=== PATIENT | male | born 1970 | race Caucasian/White ===

== ENCOUNTER 2025-09-29 13:40 | Outpatient (AMB) | payer OTHER, SELFPAY ==
--- NOTE | 2025-09-29 13:49 | MHC.OFFVIS ---
Intake Visit Reasons: 1yr Allergies No Known Allergies (NO KNOWN ALLERGIES) Allergy (Intermediate, Unverified 08/03/20 19:52) UNKNOWN HPI Comments Details: 55 yo man with anxiety and migraine headaches. He used to have migraine symptoms (tingling, numbness, brain fogginess, and headaches, then he started to have a lot of headaches. Pain on one or the other side, front or top or the back of head. Headache lasted for couple of weeks, after which he started having numbness and tingling in different areas of his body.) He is presenting with sleep disturbances and migraine management. He has been experiencing migraines infrequently, about once or twice in the last six months, with identifiable pre-migraine symptoms that are sometimes visual. This preemptive recognition enables him to take his medication early, which proves effective in managing his migraine symptoms. No maintenance therapy for migraines is undertaken at this time. The patient also reports difficulty in regulating sleep, facing a pattern where he awakens after three to four hours of rest. He attributes this partly to aging, which affects the autonomic nervous system's capacity for deep sleep. 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 He recognizes the importance of both physical and mental activities in mitigating these issues and plans to improve his current exercise routine. Review of Systems Narrative - Neurological: Reports infrequent migraines, with precursory visual symptoms. - Sleep: Reports difficulty in regulating sleep and waking after 3-4 hours. 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 - Psychiatric: Denies additional mental health concerns. Physical Exam Neuro Other: Mental Status: Alert and oriented to person, place, and time. Normal attention. Normal spontaneous speech, fluency, and comprehension. No obvious issues with mood and memory. Affect is appropriate. Cranial Nerves: CN II: Visual higginbotham full to confrontation, visual acuity intact. CN III, IV, : Pupils equal, round, reactive to light and accommodation. Extraocular movements are normal. CN V: Facial sensation is normal. CN VII: Facial movements symmetrical. CN VIII: Hearing intact to bedside conversation is normal. CN IX, X: Palate elevates symmetrically. CN XI: Shoulder shrug and head turn symmetrical. CN XII: Tongue midline without atrophy or fasciculations. Coordination: Gbyhee-zh-olhg and ajhj-ud-uxzf testing normal. No dysmetria. Gait and Station: No obvious gait abnormality. No ataxia or instability. Extrapyramidal: Full facial expressions and blinking. No rigidity. Movements are appropriate with no tremor or abnormality. Speech: Normal; no dysarthria or tremor. Assessment & Plan Assessment & Plan (1) Migraine: Comment: MRI brain WO at [facility] in Jul 2024: Empty sella CT brain WO [place] [facility] [place]: mild cortical bifrontal atrophy MRI brain WO at [facility] in May 2020: ok with a right ext cap area cyst Chest XR at [facility] in May 2020; WNL. Code(s): G43.909 - Migraine, unspecified, not intractable, without status migrainosus Category: Medical Qualifiers: Migraine type: without aura Status migrainosus presence: without status migrainosus Intractability: not intractable Qualified Code(s): G43.009 - Migraine without aura, not intractable, without status migrainosus (2) Migraine equivalent syndrome: Code(s): G43.109 - Migraine with aura, not intractable, without status migrainosus Category: Medical (3) Anxiety: Code(s): F41.9 - Anxiety disorder, unspecified Category: Medical (4) Insomnia: Code(s): G47.00 - Insomnia, unspecified Category: Medical Qualifiers: Insomnia type: psychophysiologic Qualified Code(s): F51.04 - Psychophysiologic insomnia Plan Impression: 1. Migraine 2. Migraine equivalents syndrome causing multiple symptoms as described in HPI 3. Psychophysiologic insomnia Recommendations: 1. Sumatriptan 50 mg 1 a day as needed 2. Reassurance and education about sleep and sleep hygiene. The patient and I discussed the management of his migraine and sleep disturbances. For the migraines, since they occur infrequently and are managed successfully with prescribed medication, no adjustment to his current treatment was deemed necessary. For sleep disturbances, we conversed about the significance of sleep hygiene and regular exercise. I highlighted that as one ages, paying attention to such factors becomes increasingly important due to changes in the autonomic nervous system. I encouraged the patient to make lifestyle changes over the next few months, and should these not result in improvement, we might consider additional therapeutic options. I recommended reading materials on insomnia to help inform his self-management efforts. We agreed on these plans and addressed any questions he had during our conversation. Coding Level of Care Code Est Pt Level 4 (38411) Global (44120) Diagnoses Migraine without aura and without status migrainosus, not intractable G43.009 Migraine type: without aura Status migrainosus presence: without status migrainosus Intractability: not intractable Migraine equivalent syndrome G43.109 Anxiety F41.9 Psychophysiological insomnia F51.04 Insomnia type: psychophysiologic
--- OUTSIDE RECORDS SUMMARY | 2025-09-29 17:01 | XMS_ITS | Encounter Summary ---
Author Organization [facility] Address [address] [place] [phone] Phone Care Team Providers Care Apple Press Operator Name Role Phone Je De Guzman MD Primary Care Provider [phone] Pcp, Unknown Primary Care Provider Unavailabl e Encounter Details Date Type Department Care Team (Late st Contact Info) Description 07/02/2018 Ancillary Orders Virtual Department [address] [place] [address] Je De Guzman MD [address] [place] [id number] [email or web address] Generalized headache Social History Tobacco Use Types Packs/Day Years Used Date Smoking Tobacco: Never Assessed Sex and Gender Information Value Date Recorded Sex Assigned at Male 07/23/2024 11:22 AM EDT Legal Sex Male 9:58 AM EDT Gender Identity Male 07/23/2024 11:22 AM EDT Sexual Orientation Straight 07/23/2024 11 :22 AM EDT documented as of this encounter Plan of Treatment Not on file documented as of this encounter Results * CT HEAD WITHOUT CONTRAST (07/08/2018 4:22 PM EDT) Anatomical Region Laterality Modality Head Computed Tomogra phy 07/08/2018 4:24 PM EDT Impressions 07/08/2018 4:32 PM EDT 1. No acute intracranial hemorrhage or skull fracture. 2. Sinusitis. TOTAL CTDIvol: 53.1 mGy POS - [id number] Narrative 07/08/2018 4:32 PM EDT COMPARISON: None. TECHNIQUE: Nonenhanced head CT from skull base to vertex with multi-planar reformats. Manual dose reduction technique tailored for patient and site of imaging CT HEAD FINDINGS: There is no acute intracranial hemorrhage, infarct, or intracranial mass. No mass effect, midline shift or extra-axial fluid collections. Hanks-white matter differentiation is preserved. No hydrocephalus. There is mild bifrontal cortical atrophy and prominence of the extra-axial space. Basal cisterns are patent. Nonenhanced vasculature is normal. Pituitary gland is not enlarged. Mastoids and middle ears are clear. Small right maxillary sinus air-fluid level and partial fluid opacification of the ethmoid sinuses. No acute orbital findings. No acute soft tissue or bony abnormality. Procedure Note Ros Richter MD - 07/08/2018 COMPARISON: None. TECHNIQUE: Nonenhanced head CT from skull base to vertex with multi- planarreformats. Manual dose reduction technique tailored for patient and siteof imaging CT HEAD FINDINGS: There is no acute intracranial hemorrhage, infarct, or intracranial mass.No mass effect, midline shift or extra-axial fluid collections.Hanks-white matter differentiation is preserved. No hydrocephalus. Thereis mild bifrontal cortical atrophy and prominence of the extra-axialspace. Basal cisterns are patent. Nonenhanced vasculature is normal.Pituitary gland is not enlarged. Mastoids and middle ears are clear.Small right maxillary sinus air-fluid level and partial fluidopacification of the ethmoid sinuses. No acute orbital findings. No acutesoft tissue or bony abnormality. IMPRESSION: 1. No acute intracranial hemorrhage or skull fracture. 2. Sinusitis. TOTAL CTDIvol: 53.1 mGy POS - [id number] Je De Guzman MD IMG CT HEAD/NECK Final Result documented in this encounter Visit Diagnoses Diagnosis Generalized headache Generalized headache documented in this encounter Care Teams Apple Press Operator Relationship Specialty Start Date End Date Je De Guzman MD [email or web address] PCP - General Internal Medicine 07/02/18 07/22/24 Pcp, Unknown PCP - General 07/23/24 documented as of this encounter Additional Source Comments The information contained in this document represents components of the legal health record. It is not the complete legal health record.[facility]
--- OUTSIDE RECORDS SUMMARY | 2025-09-29 17:01 | XMS_ITS | Encounter Summary ---
Author Organization [facility] Address [address] [place] [phone] Phone Care Team Providers Care Ssrs Developer Name Role Phone Je De Guzman MD Primary Care Provider [phone] Pcp, Unknown Primary Care Provider Unavailabl e Reason for Referral * Physical Therapy (Routine) - Closed Specialty Diagnoses / Procedures Referred By Contgerald t Referred To Contact Physical Therapy Diagnoses Encounter for rehabilitation System, Provider Not In, PhD [id number] [place] [address] [address] [place] [address] Phone: tel: Referral ID Status Reason Start Date Expiration Date Visits Re quested Visits Authorized [id number] Closed 06/09/2018 11/16/2018 99 [phone] Encounter Details Date Type Department Care Team (Late st Contact Info) Description 07/16/2018 Transcribe Orders [facility] [address] [place] [address] Roberta Segal MD [address] [place] [id number] [email or web address] Encounter for rehabilitation (Primary Dx) Social History Tobacco Use Types Packs/Day Years Used Date Smoking Tobacco: Never Assessed Sex and Gender Information Value Date Recorded Sex Assigned at Male 07/23/2024 11:22 AM EDT Legal Sex Male 9:58 AM EDT Gender Identity Male 07/23/2024 11:22 AM EDT Sexual Orientation Straight 07/23/2024 11 :22 AM EDT documented as of this encounter Plan of Treatment Scheduled Referrals Name Type Priority Associated Diagnoses Orde r Schedule Ambulatory referral to [facility] Physical Therapy Outpatient Referral Routine Encounter for rehabilitation Ordered: 07/16/2018 documented as of this encounter Visit Diagnoses Diagnosis Encounter for rehabilitation- Primary documented in this encounter Care Teams Ssrs Developer Relationship Specialty Start Date End Date Je De Guzman MD [email or web address] PCP - General Internal Medicine 07/02/18 07/22/24 Pcp, Unknown PCP - General 07/23/24 documented as of this encounter Additional Source Comments The information contained in this document represents components of the legal health record. It is not the complete legal health record.[facility]
--- OUTSIDE RECORDS SUMMARY | 2025-09-29 17:01 | XMS_ITS | Encounter Summary ---
Author Organization [facility] Address [address] [place] [phone] Phone Care Team Providers Care Electronic Organ Technician Name Role Phone Je De Guzman MD Primary Care Provider Pcp, Unknown Primary Care Provider Unavailabl e Encounter Details Date Type Department Care Team (Late st Contact Info) Description 07/02/2018 Procedure [facility], Ct Scan - [address] [address] Social History Tobacco Use Types Packs/Day Years [...] on file documented as of this encounter Visit Diagnoses Not on filedocumented in this encounter Care Teams Electronic Organ Technician Relationship Specialty Start Date End Date Je De Guzman MD [email or web address] PCP - General Internal Medicine 07/02/18 07/22/24 Pcp, Unknown PCP - General 07/23/24 documented as of this encounter Additional Source Comments The information contained in this document represents components of the legal health record. It is not the complete legal health record.[facility]
--- OUTSIDE RECORDS SUMMARY | 2025-09-29 17:02 | XMS_ITS | Clinical Summary ---
Author Organization [facility] Address [address] [place] [phone] Phone Care Team Providers Care Pmp Project Manager Name Role Phone Pcp, Unknown Primary Care Provider Unavailabl e Allergies Active Allergy Reactions Criticality Noted Date Comments Erythromycin 07/23/2024 Medications No known medications Social History Tobacco Use Types Packs/Day Years Used Date Smoking Tobacco: Never Assessed Education Answer Date Recorded Are you interested in more education? Not on stanislaw e 03/14/2023 Are you concerned about learning? Not on file 03/14/2023 No 03/14/2023 No 03/14/2023 Digital Access Answer Date Recorded No 04/12/2023 No 04/12/2023 No 04/12/2023 Reliable internet access at home? Not on file 04/12/2023 Device with a working camera? Not on file Intimate Partner Violence Answer Date R ecorded Are you denied basic needs s uch as food, clothing, or medical care? No 07/23/2024 In the past 12 months have y ou been in a relationship with a person who hurts, threatens, or tries to control you? No 07/23/2024 Are you denied basic needs s uch as food, clothing, or medical care? No 07/23/2024 In the past 12 months have y ou been in a relationship with a person who hurts, threatens, or tries to control you? No 07/23/2024 Sex and Gender Information Value Date Recorded Sex Assigned at Male 07/23/2024 11:22 AM EDT Legal Sex Male 9:58 AM EDT Gender Identity Male 07/23/2024 11:22 AM EDT Sexual Orientation Straight 07/23/2024 11 :22 AM EDT Last Filed Vital Signs Vital Sign Reading Time Taken Comments Blood Pressure 131/78 07/23/2024 2:58 PM EDT Pulse 50 07/23/2024 2:58 PM EDT Temperature 36.4 C (97.5 F) 07/23/2024 2:58 PM EDT Respiratory Rate 19 07/23/2024 2:58 PM EDT Oxygen Saturation 100% 07/23/2024 2:58 PM EDT Inhaled Oxygen Concentration - - Weight 83.9 kg (185 lb) 07/23/2024 11:21 AM EDT Height 188 cm (6' 2 ) 07/23/2024 11:21 AM EDT Body Mass Index 23.75 07/23/2024 11:21 AM EDT Plan of Treatment Health Maintenance Due Date Last Done Comments Adult Td,Tdap Booster 1972 LIPID PANEL 1972 DEPRESSION SCREENING 1984 SMOKING Hx and SMOKELESS TOBACCO SCREENING 1985 HEPATITIS C SCREENING 1990 HIV ONE-TIME SCREENING (18-6 5 YEARS) 1990 COLOGUARD 2017 COLONOSCOPY 2017 COLORECTAL CANCER SCREENING 2017 FIT TEST 2017 FOBT 2017 SIGMOIDOSCOPY 2017 VIRTUAL COLONOSCOPY 2017 PNEUMOCOCCAL VACCINES (50+ years) (1 of 1 - PCV) 2022 ZOSTER VACCINES (1 of 2) 2022 INFLUENZA VACCINE (#1) 2025 09/30/2018 COVID-19 VACCINE (3 - 2024-2 6 season) 2025 04/05/2021, 03/08/2021 RSV VACCINE (1 - 1-dose 75+ series) 2047 HEPATITIS A VACCINES Aged Out No long er eligible based on patient's age to complete this topic HIB VACCINES Aged Out No longer eligi ble based on patient's age to complete this topic IPV VACCINES Aged Out No longer eligi ble based on patient's age to complete this topic MENINGOCOCCAL VACCINES (ACWY) Aged Out No longer eligible based on patient's age to complete this topic MENINGOCOCCAL VACCINES (B) Aged Out N o longer eligible based on patient's age to complete this topic Medical Devices Not on file [facility] PPO [employer] Care Teams Pmp Project Manager Relationship Specialty Start Date End Date Pcp, Unknown PCP - General 07/23/24 Additional Source Comments The information contained in this document represents components of the legal health record. It is not the complete legal health record.[facility]
== END 2025-09-29 14:00 | disposition home or self-care (01) ==
LOC: HO.HSM 13:40
PROVIDERS: PCP Family Medicine; Referring Provider Family Medicine; Visit Provider Psychiatry & Neurology Neurology
DX: G43.009 Migraine without aura, not intractable, without status migrainosus (principal); G43.109 Migraine with aura, not intractable, without status migrainosus; F41.9 Anxiety disorder, unspecified; F51.04 Psychophysiologic insomnia
CPT/HCPCS: 99214